=== PATIENT | male | born 1985 | race African-American/Black ===

== ENCOUNTER 2016-03-26 | Outpatient (CLI) | payer OTHER | END 2016-03-26 00:02 | disposition critical access hospital (66) | DX: T50.902A Poisoning by unspecified drugs, medicaments and biological substances, intentional self-harm, initial encounter (principal) | CPT/HCPCS: A0425; A0427 ==

== ENCOUNTER 2016-03-26 00:25 | Emergency (ER) | payer OTHER ==
[2016-03-26] MEDS ORDERED: SODIUM CHLORIDE 0.9% 1,000 ML IV ONE ×2 (00:44→00:52)
== END 2016-03-26 13:54 | disposition home or self-care (01) ==
DX: T45.0X2A Poisoning by antiallergic and antiemetic drugs, intentional self-harm, initial encounter (principal); T43.202A Poisoning by unspecified antidepressants, intentional self-harm, initial encounter; T50.7X2A Poisoning by analeptics and opioid receptor antagonists, intentional self-harm, initial encounter; R41.82 Altered mental status, unspecified; F32.9 Major depressive disorder, single episode, unspecified; Z91.5 Personal history of self-harm